=== PATIENT | male | born 1960 | race Caucasian/White ===

== ENCOUNTER 2018-09-03 10:05 | Observation (INO) ==
--- NOTE | 2018-09-03 10:32 | DR.CP ---
HPI Time Seen Time Seen by Provider: 09/03/18 10:27 PCP Primary Care Physician: COOKIE HERNANDEZ Comment HPI Comment: INCREASING CHEST PAIN. IN ED 2 DAYS AGO. 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 HE FEELS WEAK AND SLIGHTLY SOB. NO FEVER OR DYSURIA. Complaint Chief Complaint Doctor Comments: CHEST PAIN. Chief Complaint:: PT C/O NOT FEELING WELL HAVING CHEST PRESSURE , AND PT IS DIAPHORETIC PT SEEN IN ER ON THE , AND DX WITH ANURISM , PTS STATES I READ ON THE INTERNET AND IT SAID TO COME TO THE ER ,,BR Self Treatment fo Chief Complaint: STATES " HE JUST HAS NOT GOTTEN ANY BETTER ", Reviewed Nurses Notes Review: Yes Source History Provided: Patient Mode of Arrival Mode of Arrival: Ambulatory Timing Onset of Chief Complaint: 09/03/18 Came on: Suddenly Duration Duration: Constant Location Location of Chest Pain: Chest Chest Pain Radiation Location: None Context Onset: At rest and With light exertion Cardiac Risk Factors: None PE Risk Factors: None History of: None Quality Quality: Sharp and Pressure like Severity Severity: Moderate Modifying Factors Worsens: Exertion Impoves: Nothing Associated Signs and Symptoms Associated Signs and Symptoms: Shortness of Breath PMH PMH Past Medical History: Yes Past Medical History: Hypothyroidism Past Surgical History: No Family History History of Family Medical Conditions: Yes Family Medical History: Sudden Cardiac and Hypertension Social History Does patient currently use any type of tobacco product: No Have you used tobacco products in the last 12 months: No Type of Tobacco Use: None Does any household member use tobacco: No Alcohol Use: None Do you use any recreational Drugs:: No Lives With: Family Lives Where: Home infectious screening In the last 2 months have you had wt loss of >10#?: NO Have you had fever, night sweats or hemotysis?: No Have you traveled outside the country in the last 6 months?: No Isolation: Standard ROS Review of Systems Constitutional: Diaphoresis, Weakness and Fatigue Eyes: No Symptoms Reported ENTM: No Symptoms Reported Respiratoy: Short of Breath Cardiovascular: Chest Pain Gastrointestinal/Abdominal: No Symptoms Reported Genitourinary: No Symptoms Reported Neurological: Weakness Musculoskeletal: No Symptoms Reported Integumentary: No Symptoms Reported Hematologic/Lymphatic: No Symptoms Reported Endocrine: No Symptoms Reported Psychiatric: No Symptoms Reported All Other Systems: Reviewed and Negative PE Vitals Vitals: Temperature 98.6 F Pulse Rate [Right Brachial] 59 Pulse Rate 58 Respiratory Rate 20 Blood Pressure [Right Arm] 130/67 Blood Pressure [Left Arm] 144/88 Blood Pressure 147/102 O2 Sat by Pulse Oximetry 97 General Limitations: No Limitations General Appearance: Alert and In No Apparent Distress Head Head Exam: Normal Inspection Eyes Eye exam: Normal Appearance ENT ENT Exam: Normal Exam Chest Chest Inspection: Normal Inspection Respiratory Respiratory Exam: Normal Lung Sounds Bilat Respiratory Exam: Bilateral: Clear to Auscultation Cardiovascular Cardiovascular Exam: Regular Rate Pulse: Normal Edema: Normal Abdominal Exam Abdominal Exam: Normal Inspection, Normal Bowel Sounds and Soft; negative Tenderness Extremities Extremities Exam: Normal Inspection Back Back Exam: Normal Inspection Neurologic Neurological Exam: Alert and Oriented X3; negative Motor Sensory Deficit Psychiatric Psychiatric Exam: Normal Affect and Normal Mood Skin Skin Exam: Warm, Dry, Intact and Normal Color MDM Additional Information Additional Information Obtained From: Family Differential Diagnosis Differential Diagnosis: Angina, Chest Wall Pain, CHF, Costochondritis, Myocardial Infarction, Pericarditis, Pleuritis, Pancreatitis and Pneumothorax COURSE Treatment Treatment: SEE ORDERS. Education/Counseling Education/Counseling: Patient and Family Educated On: Diagnosis ROR Labs Reviewed Laboratory Results Reviewed?: Yes Result Diagrams: 09/04/18 04:52 09/04/18 04:52 Laboratory: WBC 5.6 X10^3/uL (3.6-10.0) 09/04/18 04:52 RBC 4.46 X10^6/uL (4.7-6.0) L 09/04/18 04:52 Hgb 14.6 g/dL (13.5-18.0) 09/04/18 04:52 Hct 42.5 % (42.0-54.0) 09/04/18 04:52 MCV 95.2 fL (80.0-100.0) 09/04/18 04:52 MCH 32.6 pg (27.0-34.0) 09/04/18 04:52 MCHC 34.3 g/dL (33.0-35.0) 09/04/18 04:52 RDW 13.1 % (11.6-16.5) 09/04/18 04:52 Plt Count 211 X10^3/uL (150.0-450.0) 09/04/18 04:52 MPV 8.7 fL (7.4-11.0) 09/04/18 04:52 Neut % (Auto) 53.9 % (42.0-75.0) 09/04/18 04:52 Lymph % (Auto) 27.0 % (21.0-51.0) 09/04/18 04:52 [place] % (Auto) 14.5 % (0.0-13.0) H 09/04/18 04:52 Eos % (Auto) 3.9 % (0.9-2.9) H 09/04/18 04:52 Baso % (Auto) 0.7 % (0.2-1.0) 09/04/18 04:52 Neut # (Auto) 3.0 x10^3/uL (2.2-4.8) 09/04/18 04:52 Lymph # (Auto) 1.5 X10^3/uL (1.3-2.9) 09/04/18 04:52 [place] # (Auto) 0.8 x10^3/uL (0.3-0.8) 09/04/18 04:52 Eos # (Auto) 0.2 x10^3/uL (0.0-0.2) 09/04/18 04:52 Baso # (Auto) 0.0 X10^3/uL (0.0-0.1) 09/04/18 04:52 Absolute Nucleated RBC 0.1 /100WBC 09/04/18 04:52 D-Dimer 880 ng/mL (0-400) H* 09/03/18 10:41 Sodium 140 mmol/L (136-145) 09/04/18 04:52 Corrected Sodium 140 mmol/L (136-145) 09/04/18 04:52 Potassium 3.7 mmol/L (3.5-5.1) 09/04/18 04:52 Chloride 102 mmol/L (98-107) 09/04/18 04:52 Carbon Dioxide 28.8 mmol/L (21-32) 09/04/18 04:52 BUN 18 mg/dL (7-18) 09/04/18 04:52 Creatinine 1.03 mg/dL (0.70-1.30) 09/04/18 04:52 Est GFR (MDRD) Af Amer > 60 (>60) 09/04/18 04:52 Est GFR (MDRD) Non-Af > 60 (>60) 09/04/18 04:52 Glucose 116 mg/dL (65-99) H 09/04/18 04:52 Calcium 9.1 mg/dL (8.5-10.1) 09/04/18 04:52 Corrected Calcium 10.0 mg/dL (8.5-10.1) 09/04/18 04:52 Magnesium 2.2 mg/dL (1.7-2.9) 09/03/18 19:08 Total Bilirubin 0.40 mg/dL (0.2-1.0) 09/04/18 04:52 AST 34 Units/L (15-37) 09/04/18 04:52 ALT 83 Units/L (12-78) H 09/04/18 04:52 Alkaline Phosphatase 47 Units/L (46-116) 09/04/18 04:52 Creatine Kinase 44 Units/L (39-308) 09/04/18 04:52 CK-MB (CK-2) 2.5 ng/mL (0-4.0) 09/04/18 04:52 CK/CKMB % Calc 5.7 % (<4) 09/04/18 04:52 Troponin I < 0.02 ng/mL (0-1.5) 09/04/18 04:52 Total Protein 6.5 g/dL (6.4-8.2) 09/04/18 04:52 Albumin 2.9 g/dL (3.4-5.0) L 09/04/18 04:52 Globulin 3.6 g/dL (2.5-4.5) 09/04/18 04:52 Albumin/Globulin Ratio 0.8 Ratio (1.1-2.1) L 09/04/18 04:52 Triglycerides 116 mg/dL (0-150) 09/04/18 04:52 Cholesterol 170 mg/dL (0-200) 09/04/18 04:52 LDL Cholesterol, Calc 112 mg/dL (0-100) H 09/04/18 04:52 HDL Cholesterol 35 mg/dL (40-60) L 09/04/18 04:52 Cholesterol/HDL Ratio 4.9 (0.0-5.0) 09/04/18 04:52 Specimen Type Clean catch urine 09/03/18 12:28 Urine Color Yellow (YELLOW) 09/03/18 12:28 Urine Appearance Clear (CLEAR) 09/03/18 12:28 Urine pH 5.0 (5.0 - 8.0) 09/03/18 12:28 Ur Specific [place] 1.025 (1.000-1.030) 09/03/18 12:28 Urine Protein 2+ (NEGATIVE) 09/03/18 12:28 Urine Glucose (UA) Negative (NEGATIVE) 09/03/18 12:28 Urine Ketones Negative (NEGATIVE) 09/03/18 12:28 Urine Occult Blood 1+ (NEGATIVE) 09/03/18 12:28 Urine Nitrite Negative (NEGATIVE) 09/03/18 12:28 Urine Bilirubin Negative (NEGATIVE) 09/03/18 12:28 Urine Urobilinogen Normal (NORMAL) 09/03/18 12:28 Ur Leukocyte Esterase Negative (NEGATIVE) 09/03/18 12:28 Urine RBC 0-2 /HPF (NONE SEEN) 09/03/18 12:28 Urine WBC 0-2 /HPF (NONE SEEN) 09/03/18 12:28 Ur Squamous Epith Cells Rare /HPF (NEGATIVE) 09/03/18 12:28 Amorphous Sediment Trace /HPF (NEGATIVE) 09/03/18 12:28 Urine Bacteria Negative /HPF (NEGATIVE) 09/03/18 12:28 Urine Mucus Few /HPF (NEGATIVE) 09/03/18 12:28 Ur Culture Indicated? No/not indicated 09/03/18 12:28 Diagnosis Discharge Problem: Chest pain
[2018-09-03 11:09] LABS: BASOPHILS % (AUTO) 0.6 % (0.2-1.0); EOSINOPHILS # (AUTO) 0.1 x10^3/uL (0.0-0.2); EOSINOPHILS % (AUTO) 2.9 % (0.9-2.9); HEMATOCRIT 43.8 % (42.0-54.0); HEMOGLOBIN 15.1 g/dL (13.5-18.0); MEAN CORPUSCULAR HEMOGLOBIN 32.3 pg (27.0-34.0); MEAN CORPUSCULAR HGB CONC 34.4 g/dL (33.0-35.0); MEAN PLATELET VOLUME 8.7 fL (7.4-11.0); MONOCYTES # (AUTO) 0.6 x10^3/uL (0.3-0.8); MONOCYTES % (AUTO) 13.5 % (0.0-13.0); PLATELET COUNT 196 X10^3/uL (150.0-450.0); RED BLOOD COUNT 4.65 X10^6/uL (4.7-6.0); RED CELL DISTRIBUTION WIDTH 13.1 % (11.6-16.5); WHITE BLOOD COUNT 4.8 X10^3/uL (3.6-10.0)
[2018-09-03 11:31] LABS: ALANINE AMINOTRANSFERASE 81 Units/L (12-78); ALBUMIN 3.2 g/dL (3.4-5.0); ALKALINE PHOSPHATASE 62 Units/L (46-116); ASPARTATE AMINO TRANSFERASE 47 Units/L (15-37); BLOOD UREA NITROGEN 18 mg/dL (7-18); CALCIUM 9.5 mg/dL (8.5-10.1); CARBON DIOXIDE 26.9 mmol/L (21-32); CHLORIDE 100 mmol/L (98-107); CKMB % 4.9 % (<4); COR CA(FOR HYPOALB) 10.1 mg/dL (8.5-10.1); COR NA(FOR HYPERGLY) 139 mmol/L (136-145); CREATINE KINASE 78 Units/L (39-308); CREATINE KINASE MB 3.8 ng/mL (0-4.0); SODIUM 138 mmol/L (136-145); TOTAL PROTEIN 7.1 g/dL (6.4-8.2); TROPONIN I < 0.02 ng/mL (0-1.5); eGFR NON BLACK RACES > 60 (>60)
[2018-09-03] MEDS ORDERED: K-LYTE EFFERVESCENT ONE (12:05)
[2018-09-03] MEDS: K-LYTE EFFERVESCENT PO SCH (12:17)
[2018-09-03 12:53] LABS: BILIRUBIN,URINE NEGATIVE (NEGATIVE); BLOOD/HEMOGLOBIN,URINE 1+ (NEGATIVE); GLUCOSE, URINE NEGATIVE (NEGATIVE); KETONES,URINE NEGATIVE (NEGATIVE); LEUKOCYTE ESTERASE ,URINE NEGATIVE (NEGATIVE); NITRITES,URINE NEGATIVE (NEGATIVE); PROTEIN,URINE 2+ (NEGATIVE); UROBILINOGEN,URINE NORMAL (NORMAL)
[2018-09-03 13:03] LABS: APPEARANCE,URINE CLEAR (CLEAR); COLOR,URINE YELLOW (YELLOW)
[2018-09-03 13:07] LABS: AMORPHOUS SEDIMENT,UR TRACE /HPF (NEGATIVE); BACTERIA,URINE NEGATIVE /HPF (NEGATIVE); MUCUS,URINE FEW /HPF (NEGATIVE); RBC,URINE 0-2 /HPF (NONE SEEN); SQUAMOUS EPITHELIAL CELL,UR RARE /HPF (NEGATIVE)
[2018-09-03] MEDS: NS 1000 ML 1,000 ML IV SCH (17:55)
[2018-09-03 18:04] VITALS: BMI 26.6
[2018-09-03] MEDS ORDERED: FLUVIRIN or FLUCELVAX IM ONE ×2 (18:04→20:00)
[2018-09-03 19:23] LABS: MAGNESIUM 2.2 mg/dL (1.7-2.9)
[2018-09-03] MEDS: PREVNAR 13 IM ONE (19:30)
[2018-09-03] MEDS ORDERED: KLOR-CON PO PRN (20:16)
[2018-09-03] MEDS ORDERED: POTASSIUM CHL 40 MEQ/NS 0.45% 500 ML IV PRN (20:16)
[2018-09-03] MEDS ORDERED: K-DUR TAB 20 MEQ PO PRN (20:16)
[2018-09-03] MEDS ORDERED: POTASSIUM CHL 60 MEQ/NS 0.45% 500 ML IV PRN (20:16)
[2018-09-03] MEDS ORDERED: POTASSIUM CHLORIDE LIQ 20 MEQ UDC PO PRN (20:16)
[2018-09-03] MEDS ORDERED: K-RIDER 10 MEQ/NS 100 ML 10 MEQ/100 ML BAG IV PRN (20:16)
[2018-09-03] MEDS ORDERED: MICRO K EXTEN CAP 10 MEQ PO PRN (20:16)
[2018-09-04 00:12] LABS: CKMB % 6.1 % (<4); CREATINE KINASE 43 Units/L (39-308); CREATINE KINASE MB 2.6 ng/mL (0-4.0); TROPONIN I < 0.02 ng/mL (0-1.5)
[2018-09-04 05:17] LABS: BASOPHILS % (AUTO) 0.7 % (0.2-1.0); EOSINOPHILS # (AUTO) 0.2 x10^3/uL (0.0-0.2); EOSINOPHILS % (AUTO) 3.9 % (0.9-2.9); HEMATOCRIT 42.5 % (42.0-54.0); HEMOGLOBIN 14.6 g/dL (13.5-18.0); LYMPHOCYTES # (AUTO) 1.5 X10^3/uL (1.3-2.9); MEAN CORPUSCULAR HEMOGLOBIN 32.6 pg (27.0-34.0); MEAN CORPUSCULAR HGB CONC 34.3 g/dL (33.0-35.0); MEAN CORPUSCULAR VOLUME 95.2 fL (80.0-100.0); MEAN PLATELET VOLUME 8.7 fL (7.4-11.0); MONOCYTES # (AUTO) 0.8 x10^3/uL (0.3-0.8); MONOCYTES % (AUTO) 14.5 % (0.0-13.0); NEUTROPHILS % (AUTO) 53.9 % (42.0-75.0); PLATELET COUNT 211 X10^3/uL (150.0-450.0); RED BLOOD COUNT 4.46 X10^6/uL (4.7-6.0); RED CELL DISTRIBUTION WIDTH 13.1 % (11.6-16.5); WHITE BLOOD COUNT 5.6 X10^3/uL (3.6-10.0)
[2018-09-04 05:41] LABS: ALANINE AMINOTRANSFERASE 83 Units/L (12-78); ALBUMIN 2.9 g/dL (3.4-5.0); ALKALINE PHOSPHATASE 47 Units/L (46-116); ASPARTATE AMINO TRANSFERASE 34 Units/L (15-37); BLOOD UREA NITROGEN 18 mg/dL (7-18); CALCIUM 9.1 mg/dL (8.5-10.1); CARBON DIOXIDE 28.8 mmol/L (21-32); CHLORIDE 102 mmol/L (98-107); CHOL/HDL RATIO 4.9 (0.0-5.0); CHOLESTEROL 170 mg/dL (0-200); COR NA(FOR HYPERGLY) 140 mmol/L (136-145); CREATININE 1.03 mg/dL (0.70-1.30); HDL CHOLESTEROL 35 mg/dL (40-60); SODIUM 140 mmol/L (136-145); TOTAL PROTEIN 6.5 g/dL (6.4-8.2); TRIGLYCERIDES 116 mg/dL (0-150); eGFR NON BLACK RACES > 60 (>60)
[2018-09-04 05:47] LABS: CKMB % 5.7 % (<4); CREATINE KINASE 44 Units/L (39-308); CREATINE KINASE MB 2.5 ng/mL (0-4.0); TROPONIN I < 0.02 ng/mL (0-1.5)
[2018-09-04] MEDS: NS 1000 ML 1,000 ML IV SCH (06:25)
[2018-09-04] MEDS: K-LYTE EFFERVESCENT PO SCH (08:51)
[2018-09-04] MEDS ORDERED: SYNTHROID 150 mcg TAB PO SCH (09:00)
--- NOTE | 2018-09-04 09:12 | DR.H&P ---
H&P - History & Physical for Day of: H&P Date: 09/03/18 - Chief Complaint Chief Complaint: CHEST PAIN, CHEST PRESSURE, SANTA - History of Present Illness History of Present Illness: 58 WM ER ADMISSION AFTER PRESENTING WITH CO CHEST PAIN AND PRESSURE. PT STATES HE HAS FAMILY HX OF BROTHER HAVING FATAL NM AT AGE 40. PT STATES HE HAD EPISODE LAST WEEK AND DX WITH VIRAL ILLNESS. PT CONTINUES WITH CO WEAKNESS, NO VOMITING AND SANTA. PT HAS PMH OF HYPOTHYROIDISM AND HYPERLIPIDEMIA. PT HAS CT CHEST ON PREVIOUS VISIT WITH AAA AT 4.5 X 4.4CM. PT ADMITTED FOR SERIAL CE AND EKG. - Past Medical History Past Medical History: Dyslipidemia, Hypothyroidism - Past Surgical History Surgical History: Ortho Surgery, Other - Family History Family Medical History: NM, Hypertension - Social History Does patient currently use any type of tobacco product: No Have you used tobacco products in the last 12 months: No Type of Tobacco Use: None Does any household member use tobacco: No Alcohol Use: None Drug Use: Prescription Drugs - Medications Home Medications: No Known Drug Allergies Allergy (Verified 09/03/18 10:07) CONTINUE taking the following medications levothyroxine [Synthroid] 150 mcg PO DAILY 09/03/18 [History] - Review of Systems Constitutional: Weakness Eyes: No Symptoms Reported ENT: No Symptoms Reported Respiratory: Shortness of Breath Cardiovascular: Edema Genitourinary: No Symptoms Reported Musculoskeletal: No Symptoms Reported Skin: No Symptoms Reported Neurological: Weakness - Physical Exam Vital Signs: Temperature 98.1 F Pulse Rate [Right Brachial] 61 Pulse Rate 58 Respiratory Rate 20 Blood Pressure [Right Arm] 119/77 Blood Pressure [Left Arm] 144/88 Blood Pressure 147/102 O2 Sat by Pulse Oximetry 99 Oriented: Normal Eyes: Normal Ear: Normal Nose: Normal Throat: Normal Respiratory: RLL Diminished, LLL Diminished : Normal Auscultation: Bowel Sounds: Normal Palpation: Normal Tenderness: Normal Skin: Normal Musculoskeletal: Back:Lumbar Psychiatric: Anxiety Affect: Anxious Speech Pattern: Clear, Appropriate - Assessment/Plan (1) Chest pain Status: Acute Plan: ADMIT, SERIAL CE AND EKG. SUPPLEMENTAL O2. BP AND LIPID CONTROL. VERIFY HOME MEDICATION. CXR ON ADMISSION (2) SANTA (dyspnea on exertion) Status: Acute (3) Hypothyroid Status: Acute (4) Hyperlipidemia Status: Acute (5) Ascending aorta dilatation Status: Acute - Allergies Allergies/Adverse Reactions: Allergies Allergy/AdvReac Type Severity Reaction Status Date / Time No Known Drug Allergies Allergy Verified 09/03/18 10:07
--- NOTE | 2018-09-04 11:02 | RAD ---
Exam: Portable chest History: 58-year-old male with chest pain Comparison: None Findings: Borderline cardiomegaly is seen. Thoracic aorta is tortuous. No significant vascular congestion. Lungs are clear with no infiltrate or significant effusion on either side. Bony thorax is unremarkable as well. Impression: No acute cardiopulmonary abnormality is seen on this exam Reported By:
[2018-09-04] MEDS ORDERED: PREVNAR 13 IM ONE (12:15)
[2018-09-04] MEDS: PREVNAR 13 IM ONE (12:16)
[2018-09-04 12:24] VITALS: BP 130/67
== END 2018-09-04 15:45 | disposition short-term general hospital (02) ==
LOC: ER 10:05 → MED/SURG 10:05
PROVIDERS: ADMIT Internal Medicine; ATTEND Internal Medicine
DX: I71.2 Thoracic aortic aneurysm, without rupture; Z23 Encounter for immunization; E78.2 Mixed hyperlipidemia; R60.0 Localized edema; Z79.899 Other long term (current) drug therapy; R07.89 Other chest pain; R53.1 Weakness; E03.8 Other specified hypothyroidism; R06.02 Shortness of breath; R79.1 Abnormal coagulation profile
CPT/HCPCS: 36415; 71010; 71045; 80053; 80061; 81001; 82550; 82553; 83735; 84132; 84484; 85025; 85378; 90674; 90686; 93005; 94760; 96365; 96372; 96374; 99283; 99284; A4216; A4222; 90670; G0378; J7030; J8499